=== PATIENT | female | born 1960 | race Caucasian/White ===

== ENCOUNTER 2018-03-16 08:37 | Emergency (ER) | payer BC ==
[~2018-03-16] VITALS: Ht 162.6 cm; Wt 75.0 kg
[~2018-03-16 08:37] MED LIST: AMBIEN 5MG TABLE5 MG; CELEXA40 MG; LEXAPRO 10MG10 MG; PRINZIDE 12.5 M1 TAB PO; RT ADVAIR HFA 1112 G; VENTOLIN0.09 MG; XANAX 0.5MG0.5 MG PO; ZOFRAN ODT4 MG PO
[2018-03-16 08:45] VITALS: TEMP 98.6
[2018-03-16 09:20] LABS: BASO # 0.1 (0.0-0.2); BASO % 0.7 % (0.0-2.0); EOS # 0.4 (0.0-0.7); EOS % 5.2 % (0-4.0); GRAN # 5.7 (1.4-6.5); GRAN % 68.8 % (42.2-75.2); HEMATOCRIT 43.3 % (37.0-47.0); HEMOGLOBIN 14.7 g/dl (12.5-16.0); LYMPH # 1.4 (1.2-3.4); LYMPH % 16.3 % (20.0-51.0); MEAN CELL VOLUME 91 fl (80.0-100.0); MEAN CORPUSCULAR HEMOGLOBIN 31 pg (27.0-31.0); MEAN CORPUSCULAR HGB CONC 34 g/dl (33.0-37.0); MONO # 0.7 (0.1-0.6); MONO % 8.6 % (1.7-9.3); PLATELET COUNT 222 K/mm3 (130-400); RED BLOOD COUNT 4.78 M/mm3 (4.10-5.30); REDCELL DISTRIBUTION WIDTH-CV 12.9 % (11.5-14.5)
[2018-03-16 09:28] LABS: ALANINE AMINOTRANSFERASE 24 U/L (9-52); ALBUMIN 4.4 gm/dL (3.5-5.0); ALKALINE PHOSPHATASE 100 U/L (50-136); ANION GAP 9 mmol/L (7-16); AST,SGOT 35 U/L (15-37); BILIRUBIN,TOTAL 0.8 mg/dL (0.0-1.0); BLOOD UREA NITROGEN 9 mg/dL (7-17); CALCIUM 9.4 mg/dL (8.4-10.2); CARBON DIOXIDE 27 mmol/L (22-30); CHLORIDE 106 mmol/L (98-107); CREATININE, serum 0.72 mg/dL (0.52-1.25); GLUCOSE 137 mg/dL (74-106); POTASSIUM 3.5 mmol/L (3.4-5.0); SODIUM 142 mmol/L (137-145); TOTAL PROTEIN 7.8 gm/dL (6.4-8.2)
[2018-03-16 09:44] LABS: TROPONIN-I < 0.012 ng/mL (0.000-0.034)
[2018-03-16 10:00] VITALS: BP 137/76
[2018-03-16] MEDS ORDERED: IPRATROPIUM BROM3 M1 IH (10:33)
[2018-03-16] MEDS ORDERED: PREDNISONE20 MG PO (10:33)
[2018-03-16 10:52] VITALS: PULSE 71
== END 2018-03-16 10:52 | disposition home or self-care (01) ==
LOC: COL.ER 08:37
PROVIDERS: Physician Assistant
DX: J44.1 Chronic obstructive pulmonary disease with (acute) exacerbation (principal); R07.89 Other chest pain; E78.5 Hyperlipidemia, unspecified; F41.9 Anxiety disorder, unspecified; I10 Essential (primary) hypertension; F17.210 Nicotine dependence, cigarettes, uncomplicated; Z79.51 Long term (current) use of inhaled steroids
CPT/HCPCS: J7030; J7512

== ENCOUNTER → 2018-11-26 | Outpatient (CLI) | payer OTHER ==
[~2018-11-26] MED LIST changes: +IPRATROPIUM BROM3 M1 IH; +PREDNISONE20 MG PO
[2018-11-26 14:32] LABS: BASO # 0.1 (0.0-0.2); BASO % 0.8 % (0.0-2.0); EOS # 0.3 (0.0-0.7); EOS % 2.9 % (0-4.0); GRAN # 5.8 (1.4-6.5); GRAN % 63.3 % (42.2-75.2); HEMATOCRIT 42.3 % (37.0-47.0); HEMOGLOBIN 14.5 g/dl (12.5-16.0); LYMPH # 2.5 (1.2-3.4); LYMPH % 27.1 % (20.0-51.0); MEAN CELL VOLUME 91 fl (80.0-100.0); MEAN CORPUSCULAR HEMOGLOBIN 31 pg (27.0-31.0); MEAN CORPUSCULAR HGB CONC 34 g/dl (33.0-37.0); MEAN PLATELET VOLUME 10.6 fl (7.4-10.4); MONO # 0.5 (0.1-0.6); MONO % 5.5 % (1.7-9.3); PLATELET COUNT 230 K/mm3 (130-400); RED BLOOD COUNT 4.67 M/mm3 (4.10-5.30); REDCELL DISTRIBUTION WIDTH-CV 12.6 % (11.5-14.5)
[2018-11-26 14:58] LABS: ALBUMIN 4.4 gm/dL (3.5-5.0); BILIRUBIN,TOTAL 0.4 mg/dL (0.0-1.0); CALCIUM 9.4 mg/dL (8.4-10.2); CREATININE, serum 0.73 (0.52-1.25); POTASSIUM 3.5 mmol/L (3.4-5.0); TOTAL PROTEIN 7.4 gm/dL (6.4-8.2)
[2018-11-26 15:10] LABS: ERYTHROCYTE SEDIMENTATION RATE 5 mm/hr (0-30)
[2018-11-26 15:24] LABS: THYROID STIMULATING HORMONE 1.52 uIU/mL (0.465-4.680)
== END ==
LOC: COL.RAD 14:06
PROVIDERS: Family Medicine
DX: D48.7 Neoplasm of uncertain behavior of other specified sites (principal)
CPT/HCPCS: Q9967

== ENCOUNTER → 2019-05-06 | Outpatient (CLI) | payer OTHER ==
[2019-05-06 13:52] LABS: HEMATOCRIT 41.8 % (37.0-47.0); HEMOGLOBIN 13.9 g/dl (12.5-16.0); MEAN CELL VOLUME 91 fl (80.0-100.0); MEAN CORPUSCULAR HEMOGLOBIN 30 pg (27.0-31.0); MEAN CORPUSCULAR HGB CONC 33 g/dl (33.0-37.0); MEAN PLATELET VOLUME 10.5 fl (7.4-10.4); PLATELET COUNT 210 K/mm3 (130-400); REDCELL DISTRIBUTION WIDTH-CV 13.1 % (11.5-14.5)
[2019-05-06 14:02] LABS: ALANINE AMINOTRANSFERASE 17 U/L (9-52); ALBUMIN 4.5 gm/dL (3.5-5.0); ALKALINE PHOSPHATASE 113 U/L (50-136); ANION GAP 9 mmol/L (7-16); AST,SGOT 21 U/L (15-37); BILIRUBIN,TOTAL 0.7 mg/dL (0.0-1.0); BLOOD UREA NITROGEN 18 mg/dL (7-17); CALCIUM 9.2 mg/dL (8.4-10.2); CARBON DIOXIDE 28 mmol/L (22-30); CHLORIDE 101 mmol/L (98-107); CHOLESTEROL 252 mg/dL (120-200); CHOLESTEROL RISK RATIO 6.6; CREATININE, serum 0.81 (0.52-1.25); GLUCOSE 134 mg/dL (74-106); POTASSIUM 3.6 mmol/L (3.4-5.0); SODIUM 139 mmol/L (137-145); TOTAL PROTEIN 7.7 gm/dL (6.4-8.2)
[2019-05-06 14:20] LABS: TRIGLYCERIDE 805 mg/dL
== END ==
LOC: COL.LAB 13:13
PROVIDERS: Family Medicine
DX: Z13.0 Encounter for screening for diseases of the blood and blood-forming organs and certain disorders involving the immune mechanism (principal); Z13.220 Encounter for screening for lipoid disorders; Z13.1 Encounter for screening for diabetes mellitus

== ENCOUNTER → 2020-06-15 | Outpatient (CLI) | payer OTHER ==
[2020-06-15 13:45] LABS: HEMATOCRIT 46.6 % (37.0-47.0); HEMOGLOBIN 15.6 g/dl (12.5-16.0); MEAN CELL VOLUME 90 fl (80.0-100.0); MEAN CORPUSCULAR HEMOGLOBIN 30 pg (27.0-31.0); MEAN CORPUSCULAR HGB CONC 34 g/dl (33.0-37.0); PLATELET COUNT 278 K/mm3 (130-400); REDCELL DISTRIBUTION WIDTH-CV 12.5 % (11.5-14.5)
[2020-06-15 13:55] LABS: ALBUMIN 4.8 gm/dL (3.5-5.0); BILIRUBIN,TOTAL 0.7 mg/dL (0.0-1.0); CALCIUM 10.1 mg/dL (8.4-10.2); CHOLESTEROL RISK RATIO 6.1; CREATININE, serum 1.1 (0.52-1.25); POTASSIUM 3.9 mmol/L (3.4-5.0); TOTAL PROTEIN 8.8 gm/dL (6.4-8.2)
[2020-06-15 14:25] LABS: THYROID STIMULATING HORMONE 1.45 uIU/mL (0.465-4.680)
== END ==
LOC: COL.LAB 13:05
PROVIDERS: Family Medicine
DX: Z00.00 Encounter for general adult medical examination without abnormal findings (principal); Z13.1 Encounter for screening for diabetes mellitus; Z13.220 Encounter for screening for lipoid disorders

== ENCOUNTER → 2021-05-21 | Outpatient (CLI) | payer OTHER ==
[2021-05-21 12:09] LABS: COLLECTION METHOD CLEAN CATCH
[2021-05-21 12:12] LABS: BASO # 0.1 K/mm3 (0.0-0.2); BASO % 0.8 % (0.0-2.0); EOS # 0.2 K/mm3 (0.0-0.7); EOS % 1.8 % (0.0-4.0); GRAN # 6.7 K/mm3 (1.4-6.5); GRAN % 72.4 % (42.2-75.2); HEMATOCRIT 39.9 % (37.0-47.0); LYMPH # 1.7 K/mm3 (1.2-3.4); LYMPH % 18.3 % (20.0-51.0); MEAN CELL VOLUME 89 fl (80.0-100.0); MEAN CORPUSCULAR HEMOGLOBIN 31 pg (27-31); MEAN CORPUSCULAR HGB CONC 35 g/dl (33.0-37.0); MEAN PLATELET VOLUME 10.4 fl (7.4-10.4); MONO # 0.6 K/mm3 (0.1-0.6); MONO % 6.1 % (1.7-9.3); PLATELET COUNT 269 K/mm3 (130-400)
[2021-05-21 12:15] LABS: MUCOUS Present (NOT PRESENT); PH 5 (5-8); SQUAMOUS EPITHELIAL 0-2 /hpf (0-10); URINE APPEARANCE Hazy (CLEAR/HAZY); URINE BACTERIA None Seen /hpf (NONE SEEN); URINE BILIRUBIN Negative (NEGATIVE); URINE BLOOD Negative (NEGATIVE); URINE COLOR Yellow (YELLOW); URINE GLUCOSE Negative (NEGATIVE); URINE KETONE Trace (NEGATIVE); URINE LEUKOCYTE ESTERASE Negative (NEGATIVE); URINE NITRATE Negative (NEGATIVE); URINE PROTEIN(semi-quant) Negative (NEGATIVE); URINE RBC 0-2 /hpf (0-2); URINE UROBILINOGEN Negative (NEGATIVE)
[2021-05-21 12:33] LABS: ALBUMIN 3.9 gm/dL (3.4-4.8); BILIRUBIN,TOTAL 0.4 mg/dL (0.2-1.2); C-REACTIVE PROTEIN 3.43 mg/dL (0.00-0.50); CALCIUM 9.5 mg/dL (8.4-10.2); CREATININE, serum 0.72 mg/dL (0.57-1.11); POTASSIUM 3.4 mmol/L (3.5-4.5); TOTAL PROTEIN 7.5 gm/dL (6.2-8.1)
[2021-05-21 12:35] LABS: ERYTHROCYTE SEDIMENTATION RATE 23 mm/hr (0-30)
[2021-05-21 12:55] LABS: TSH w REFLEX 1.307 uIU/mL (0.350-4.940)
== END ==
LOC: COL.LAB 11:41
PROVIDERS: Family Medicine
DX: R68.89 Other general symptoms and signs (principal)

== ENCOUNTER 2021-06-01 07:51 | Day surgery (SDC) | payer OTHER ==
[~2021-06-01] VITALS: Ht 162.6 cm; Wt 72.1 kg
[2021-06-01] MEDS ORDERED: HYZAAR 25 MG-101 TAB PO (08:23)
[2021-06-01] MEDS ORDERED: SEROQUEL XR150 MG PO (08:24)
[2021-06-01] MEDS ORDERED: DESYREL 50MG50 MG PO (08:24)
[2021-06-01] MEDS ORDERED: TRELEGY ELLIPT1 EACH IH (08:25)
[2021-06-01 08:38] VITALS: BP 107/70; PULSE 87; TEMP 97.3
[2021-06-01 09:50] VITALS: BP 90/62; PULSE 86; TEMP 98
[2021-06-01 10:05] VITALS: BP 98/71; PULSE 84; TEMP 97.9
[2021-06-01 10:25] VITALS: BP 115/64; PULSE 80; TEMP 98.1
== END 2021-06-01 10:30 | disposition home or self-care (01) ==
LOC: SDCO 07:51
DX: Z12.11 Encounter for screening for malignant neoplasm of colon (principal); D12.3 Benign neoplasm of transverse colon; D12.5 Benign neoplasm of sigmoid colon; K63.5 Polyp of colon; K64.0 First degree hemorrhoids; Z20.822 Contact with and (suspected) exposure to COVID-19; I10 Essential (primary) hypertension; K21.9 Gastro-esophageal reflux disease without esophagitis; J45.909 Unspecified asthma, uncomplicated; F17.210 Nicotine dependence, cigarettes, uncomplicated; F32.A Depression, unspecified; F41.9 Anxiety disorder, unspecified; Z79.899 Other long term (current) drug therapy; Z79.51 Long term (current) use of inhaled steroids
CPT/HCPCS: J2704; J7030